=== PATIENT | female | born 1980 | race Caucasian/White ===

== ENCOUNTER → 2017-10-15 | Outpatient (REF) ==
[~2017-10-15] MED LIST: CEP500 PO; IBU600 PO; IBUPROFEN; LOR5/325 PO; OMEP40CA79 PO; ONDA4TAB PO; PER PO
== END ==
LOC: ZZSLMC 12:00
PROVIDERS: ATTEND Surgery
DX: R10.11 Right upper quadrant pain (principal)
CPT/HCPCS: 88305